=== PATIENT | male | born 1930 | race Caucasian/White ===

== ENCOUNTER → 2017-01-07 | Outpatient (CLI) | payer OTHER | LOC: BHLMT 16:00 | PROVIDERS: ATTEND Internal Medicine Interventional Cardiology | DX: I49.3 Ventricular premature depolarization (principal); I47.2 Ventricular tachycardia | CPT/HCPCS: 93225-PO; 93226-PO ==

== ENCOUNTER 2018-05-13 09:27 | Inpatient (IN) | payer OTHER ==
[2018-05-13] MEDS ORDERED: PROTOCOL POTASSIUM 1 DOSE MISC PRN (12:06)
[2018-05-13] MEDS ORDERED: PROTOCOL MAGNESIUM 1 DOSE IV PRN (12:06)
[2018-05-13] MEDS ORDERED: ONDANSETRON 4 MG/2 ML VIAL IVP PRN (12:06)
[2018-05-13] MEDS ORDERED: ONDANSETRON DISINTEGRATING 4 MG TAB PO PRN (12:06)
[2018-05-13] MEDS: FUROSEMIDE 100 MG in D5W 100 ML IV SCH ×2 (13:58→23:41)
--- NOTE | 2018-05-13 14:57 | PDCARPN ---
Cardiology Progress Note Chief Complaint: Shortness of Breath and leg swelling Assessment/Plan: Assessment: Darell is a 88 y/o male with history of Diastolic and Systolic CHF, COPD, DMT2, HTN, Morbid obesity and Myelodysplastic Syndrome. He is followed as an out- patient by Dr Juvenal Crooks. He has been on oral Lasix and not adequately diuresing. Acute on Chronic Systolic and Diastolic CHF: Increased SOB and leg and abdominal swelling that is not responding to oral diuretics. He has been sleeping in a recliner chair at home to get rest. Lower legs are 3+ edema with red with no skin breakdown. HYPERTENSION well managed on Lisinopril and Carvedilol. He does use oxygen which is helpful. He understands his plan for hospital care. Plan: IV Lasix drip for diuresis. Will monitor his electrolytes closely. Will have PT /OT work with him while here. 05/13/18 14:47 Subjective: I can't breath well. The Lasix at home has not helped. Reviewed/Discussed With: family, multidisciplinary team Time Spent with Patient: greater than 25 minutes Time Spent with Patient: Greater than 25 minutes spent on this patients care, greater than 50% of time spent counseling, educating, and coordinating care regarding the above mentioned plan. Objective: Vital Signs (8 Hrs) Temp Pulse Resp BP Pulse Ox 05/13/18 11:51 36.7 C 82 20 133/64 H 98 Intake/Output (24 Hrs) 05/12/18 05/13/18 05/14/18 05:59 05:59 05:59 Other: Weight 133 kg Result Diagrams: 05/13/18 13:50 - Physical Exam Constitutional: no apparent distress Cardiovascular: regular rate and rhythm, no rubs, no gallops Peripheral Pulses: 1+: dorsalis-pedis (R), dorsalis-pedis (L) Respiratory: reduced air movement, expiratory wheeze Gastrointestinal: no tenderness, tenderness, ascites Skin: warm, erythema, No no edema Neurologic: AAOx3 Psychiatric: cooperative, interactive ICD10 Worksheet Patient Problems: Problems Problem Status Onset Systolic and diastolic CHF, acute on chronic Acute
--- NOTE | 2018-05-13 16:46 | CPEKG ---
Test Reason : OPEN Blood Pressure : / mmHG Vent. Rate : 067 BPM Atrial Rate : 066 BPM P-R Int : 227 ms QRS Dur : 097 ms QT Int : 456 ms P-R-T Axes : 057 051 054 degrees QTc Int : 482 ms Sinus rhythm First degree AV block. Low voltage, precordial leads Borderline prolonged QT interval Confirmed by Alberto Kahn ([id number]) on 05/13/2018 4:46:12 PM Referred By: Juvenal Crooks Confirmed By:Alberto Kahn
[2018-05-13] MEDS: CARVEDILOL 3.125 MG TAB PO SCH (17:14)
[2018-05-13] MEDS ORDERED: POTASSIUM CL 10 MEQ TAB PO ONE (19:35)
[2018-05-13] MEDS: SENNOSIDES/DOCUSATE SODIUM TAB PO SCH (19:51)
[2018-05-13] MEDS: TEMAZEPAM 15 MG CAP PO PRN (22:43)
[2018-05-14 04:52] LABS: PLATELET COUNT 55 10^3/uL (150-400)
[2018-05-14] MEDS: ENOXAPARIN 40 MG/0.4 ML SYR SC SCH (07:43)
[2018-05-14] MEDS ORDERED: POTASSIUM CL 10 MEQ TAB PO ONE ×3 (07:45→20:04)
[2018-05-14] MEDS: FOLIC ACID 1 MG TAB PO SCH (09:27)
[2018-05-14] MEDS: SENNOSIDES/DOCUSATE SODIUM TAB PO SCH ×2 (09:27→20:22)
[2018-05-14] MEDS: CARVEDILOL 3.125 MG TAB PO SCH ×2 (09:27→18:21)
[2018-05-14] MEDS: CYANO/VITAMIN B12 1000 MCG TAB PO SCH (09:27)
[2018-05-14] MEDS: metFORMIN SR 500 MG TAB PO SCH (09:27)
[2018-05-14] MEDS: PYRIDOXINE HCL 100 MG TAB PO SCH (09:27)
[2018-05-14] MEDS: LISINOPRIL 5 MG TAB PO SCH (09:27)
[2018-05-14] MEDS: ASPIRIN 81 MG CHEWABLE TAB PO SCH (09:28)
--- NOTE | 2018-05-14 11:59 | PDMN ---
Medical Necessity Medical necessity: Pt meets IP criteria per [employer] & MCG M-190; est los >2 mn for eval/tx of acute on chronic CHF w/increased dyspnea, leg & abdominal swelling that is not responding to oral diuretics; admit for further monitoring, IV diuresis & therapies; comorbid advanced age, COPD; per progress note & order 05/13
--- NOTE | 2018-05-14 12:15 | PDCARPN ---
Cardiology Progress Note Assessment/Plan: Assessment: Darell is a 88 y/o male with history of Diastolic and Systolic CHF, COPD, DMT2, HTN, Morbid obesity and Myelodysplastic Syndrome. He is followed as an out- patient by Dr Juvenal Crooks. He has been on oral Lasix and not adequately diuresing. Acute on Chronic Systolic and Diastolic CHF: Increased SOB and leg and abdominal swelling that is not responding to oral diuretics. He has been sleeping in a recliner chair at home to get rest. Lower legs are 3+ edema with red with no skin breakdown. HYPERTENSION well managed on Lisinopril and Carvedilol. He does use oxygen which is helpful. He understands his plan for hospital care. Plan: IV Lasix drip for diuresis. Will monitor his electrolytes closely. Will have PT /OT work with him while here. 05/13/18 14:47 05/14/18 12:10 Tolerating the Lasix drip well. He has diuresed 5 Kg over the past 24 hours. BNP 113. Cr 1.1. He is breathing easier and his legs are less swollen. Will continue with Lasix drip, and monitoring closely his electrolytes and Kidney functions. Subjective: I am breathing easier today. Feeling better. Reviewed/Discussed With: family, multidisciplinary team Time Spent with Patient: greater than 25 minutes Time Spent with Patient: Greater than 25 minutes spent on this patients care, greater than 50% of time spent counseling, educating, and coordinating care regarding the above mentioned plan. Objective: Vital Signs (8 Hrs) Temp Pulse Pulse Pulse Resp BP BP 05/14/18 10:46 36.4 C 14 05/14/18 08:50 74 80 65 125/70 H 110/70 05/14/18 08:25 74 65 65 125/70 H 110/70 05/14/18 06:22 77 77 67 125/64 H 108/75 BP Pulse Ox 05/14/18 10:46 98 05/14/18 08:50 113/60 05/14/18 08:25 113/60 05/14/18 06:22 105/67 Intake/Output (24 Hrs) 05/13/18 05/14/18 05/15/18 05:59 05:59 05:59 Intake Total 208.8 347 Output Total 3300 1000 Balance -3091.2 -653 Intake: Oral (ml) 50 347 IV Infused (ml) 158.8 Furosemide 100 mg In D5w 158.8 100 ml @ 10 mls/hr IV CONT ELLIE Rx#:[id number] Output: Urine (ml) 3300 1000 Catheter 3200 Urinal 100 1000 Other: Weight 128.094 kg Intake Quantity Yes Sufficient Number of Voids Urinal 1 Result Diagrams: 05/14/18 03:24 05/14/18 03:24 - Physical Exam Constitutional: no apparent distress Cardiovascular: regular rate and rhythm, no rubs, no gallops, No systolic murmur Respiratory: no crackles, no wheezes, reduced air movement Skin: warm, other (LE Edema) Neurologic: AAOx3 Psychiatric: cooperative, interactive ICD10 Worksheet Patient Problems: Problems Problem Status Onset chronic disease mgmt/transitional care Acute Systolic and diastolic CHF, acute on chronic Acute
[2018-05-14] MEDS: FUROSEMIDE 100 MG in D5W 100 ML IV SCH ×2 (13:00→20:22)
--- NOTE | 2018-05-14 14:09 | ASMTCMCOM ---
CM Note CM Note Notes: 05/14/2018 Case Management Note Pt admitted for acute on chronic CHF. Met w/pt to discuss PT recommendation for SNF rehab. Pt firmly declined. Stepdaughter Kesha [phone] in room. Kesha indicated [facility]. Pt lives with daughter Toña [phone] and son in law Troy [phone]. Pt has custodial care insurance policy that is activated. Phone call to Toña to discuss d/c recommendations. Phone call from Troy to discuss d/c recommendations. Requested family consider increasing supports at home to 24 hour support. Troy to check on coverage from intermediate manager care policy. Fax[facility] referral to [facility]. Case Management d/c poc: increasing services from [facility]. Case Management to follow. Date Signed: 05/14/2018 02:08 PM Electronically Signed By:Smiley Stone RN
[2018-05-15] MEDS ORDERED: POTASSIUM CL 10 MEQ TAB PO ONE ×2 (08:59→19:38)
[2018-05-15] MEDS ORDERED: POTASSIUM CL 10 MEQ TAB ONE (09:01)
[2018-05-15] MEDS: CYANO/VITAMIN B12 1000 MCG TAB PO SCH (09:06)
[2018-05-15] MEDS: CARVEDILOL 3.125 MG TAB PO SCH ×2 (09:06→17:49)
[2018-05-15] MEDS: SENNOSIDES/DOCUSATE SODIUM TAB PO SCH ×2 (09:06→20:17)
[2018-05-15] MEDS: FOLIC ACID 1 MG TAB PO SCH (09:06)
[2018-05-15] MEDS: metFORMIN SR 500 MG TAB PO SCH (09:06)
[2018-05-15] MEDS: LISINOPRIL 5 MG TAB PO SCH (09:06)
[2018-05-15] MEDS: ASPIRIN 81 MG CHEWABLE TAB PO SCH (09:06)
[2018-05-15] MEDS: PYRIDOXINE HCL 100 MG TAB PO SCH (09:08)
[2018-05-15 10:11] LABS: PLATELET COUNT 58 10^3/uL (150-400)
[2018-05-15] MEDS: ENOXAPARIN 40 MG/0.4 ML SYR SC SCH (13:40)
--- NOTE | 2018-05-15 15:04 | ASMTCMCOM ---
CM Note CM Note Notes: 05/15/2018 Case Management Note Pt considering home care agencies. Onsite visit from [facility] liason. Son in law Troy requested [facility] referral after consulting with [facility] providers. Case Management d/c poc: home with Diandra RN PT OT with resumption of [facility] unskilled providers. Case Management to follow. Date Signed: 05/15/2018 03:04 PM Electronically Signed By:Smiley Stone RN
--- NOTE | 2018-05-15 23:56 | PDCARPN ---
Cardiology Progress Note Assessment/Plan: Note: Late entry- the patient was seen today at approximately 18:00 Patient was electively admitted for diuresis using an intravenous furosemide drip due to a lack of response to outpatient attempts at diuresis. Over the past 2 days the patient has had over 5 L of output over the amount of intake. His lower extremity edema has improved substantially. He has no symptoms suggestive of angina or arrhythmias. His creatinine increased slightly today from 1.1-1.3. At this point, his intravenous furosemide drip will be discontinued. His home dose of furosemide will be increased to 40 mg daily starting tomorrow. He will have repeat laboratory testing in the morning. If his electrolytes and renal function are stable, he can be discharged home. The office staff at [facility] is been instructed to contact him to arrange for a follow-up appointment in the near future. 05/15/18 23:51 Subjective: No complaints. Reviewed/Discussed With: family Objective: Vital Signs (8 Hrs) Temp Pulse Resp BP Pulse Ox 05/15/18 23:10 36.9 C 75 20 119/68 95 05/15/18 20:00 36.9 C 68 20 118/63 96 05/15/18 16:00 36.7 C 71 20 111/59 L 98 Intake/Output (24 Hrs) 05/14/18 05/15/18 05/16/18 05:59 05:59 05:59 Intake Total 208.8 1067 Output Total 3300 2650 750 Balance -3091.2 -1583 -750 Intake: Oral (ml) 50 947 IV Infused (ml) 158.8 120 Furosemide 100 mg In D5w 158.8 120 100 ml @ 10 mls/hr IV CONT ELLIE Rx#:[id number] Output: Urine (ml) 3300 2650 750 Catheter 3200 850 750 Urinal 100 1800 Other: Weight 128.094 kg 126.5 kg Intake Quantity Yes Sufficient Number of Voids Urinal 2 Number of Stools Toilet 1 1 Result Diagrams: 05/15/18 10:00 05/15/18 10:00 - Physical Exam Constitutional: no apparent distress, obese Eyes: anicteric sclera Ears, Nose, Mouth, Throat: moist mucous membranes Cardiovascular: regular rate and rhythm, no murmurs Respiratory: clear to auscultate bilat Gastrointestinal: normoactive bowel sounds, no tenderness, no masses Skin: other (LE edema markedly improved) Neurologic: AAOx3 Psychiatric: not anxious ICD10 Worksheet Patient Problems: Problems Problem Status Onset Systolic and diastolic CHF, acute on chronic Acute chronic disease mgmt/transitional care Acute
[2018-05-16] MEDS: ACETAMINOPHEN 325 MG TAB PO PRN (00:25)
[2018-05-16] MEDS: TEMAZEPAM 15 MG CAP PO PRN ×2 (00:26→19:55)
--- NOTE | 2018-05-16 09:41 | PDCARPN ---
Cardiology Progress Note Chief Complaint: CHF Assessment/Plan: Assessment/Plan: 1. Decompensated CHF: Diuresed >5L in 2 days with Lasix gtt, drip was stopped yesterday due to slight bump in Cr from 1.0 to 1.3. Cr 1.4 today, edema markedly improved, lungs clear to auscultation. Transition to PO lasix 40mg daily today as per Dr. Crooks. Re-check BMP tomorrow and likely discharge home if renal function and electrolytes are stable 05/16/18 12:00 Subjective: No issues overnight, Simon reports feeling much better since admission, no cardiovascular concerns. He is eager to go home today. Reviewed/Discussed With: multidisciplinary team Objective: Vital Signs (8 Hrs) Temp Pulse Pulse Pulse Pulse Resp BP 05/16/18 08:00 36.9 C 62 18 116/64 05/16/18 04:00 36.9 C 64 65 81 76 20 122/56 H BP BP BP Pulse Ox 05/16/18 08:00 98 05/16/18 04:00 116/70 115/84 H 122/56 H 93 Intake/Output (24 Hrs) 05/15/18 05/16/18 05/17/18 05:59 05:59 05:59 Intake Total 1067 550 Output Total 2650 1999 Balance -1583 -1450 Intake: Oral (ml) 947 550 IV Infused (ml) 120 Furosemide 100 mg In D5w 120 100 ml @ 10 mls/hr IV CONT ELLIE Rx#:[id number] Output: Urine (ml) 2650 2000 Catheter 850 2000 Urinal 1800 Other: Weight 126.5 kg 126.6 kg Intake Quantity Yes Sufficient Number of Voids Urinal 2 Number of Stools Toilet 1 1 Result Diagrams: 05/15/18 10:00 05/16/18 03:15 Telemetry: NSR - Physical Exam Constitutional: WDWN, healthy appearing, no apparent distress Ears, Nose, Mouth, Throat: moist mucous membranes, no oral ulcers, no thrush Cardiovascular: regular rate and rhythm, no rubs, no gallops Peripheral Pulses: 2+: dorsalis-pedis (R), dorsalis-pedis (L) Respiratory: clear to auscultate bilat, no crackles, no wheezes Gastrointestinal: normoactive bowel sounds, no tenderness, no masses Skin: no rashes, no abrasions, no ulcers, warm, other (trace BLE edema) Neurologic: AAOx3, CN II-XII grossly intact Psychiatric: cooperative, interactive, following commands, not anxious ICD10 Worksheet Patient Problems: Problems Problem Status Onset Systolic and diastolic CHF, acute on chronic Acute chronic disease mgmt/transitional care Acute
[2018-05-16] MEDS: metFORMIN SR 500 MG TAB PO SCH (10:00)
[2018-05-16] MEDS: ENOXAPARIN 40 MG/0.4 ML SYR SC SCH (10:00)
[2018-05-16] MEDS: SENNOSIDES/DOCUSATE SODIUM TAB PO SCH ×2 (10:00→19:55)
[2018-05-16] MEDS: LISINOPRIL 5 MG TAB PO SCH (10:00)
[2018-05-16] MEDS: ASPIRIN 81 MG CHEWABLE TAB PO SCH (10:00)
[2018-05-16] MEDS: PYRIDOXINE HCL 100 MG TAB PO SCH (10:00)
[2018-05-16] MEDS: CARVEDILOL 3.125 MG TAB PO SCH ×2 (10:00→17:18)
[2018-05-16] MEDS: FOLIC ACID 1 MG TAB PO SCH (10:00)
[2018-05-16] MEDS: FUROSEMIDE 40 MG TAB PO SCH (10:00)
[2018-05-16] MEDS: CYANO/VITAMIN B12 1000 MCG TAB PO SCH (10:00)
[2018-05-16] MEDS ORDERED: POTASSIUM CL 10 MEQ TAB PO ONE (10:45)
[2018-05-17] MEDS: ACETAMINOPHEN 325 MG TAB PO PRN (04:43)
[2018-05-17 07:58] VITALS: BP 114/64
[2018-05-17] MEDS ORDERED: POTASSIUM CL 10 MEQ TAB PO ONE (07:59)
[2018-05-17] MEDS: ENOXAPARIN 40 MG/0.4 ML SYR SC SCH ×2 (08:17→08:24)
[2018-05-17] MEDS: CYANO/VITAMIN B12 1000 MCG TAB PO SCH (08:17)
[2018-05-17] MEDS: CARVEDILOL 3.125 MG TAB PO SCH (08:17)
[2018-05-17] MEDS: ASPIRIN 81 MG CHEWABLE TAB PO SCH (08:17)
[2018-05-17] MEDS: PYRIDOXINE HCL 100 MG TAB PO SCH (08:17)
[2018-05-17] MEDS: FOLIC ACID 1 MG TAB PO SCH (08:17)
[2018-05-17] MEDS: FUROSEMIDE 40 MG TAB PO SCH (08:18)
[2018-05-17] MEDS: LISINOPRIL 5 MG TAB PO SCH (08:18)
[2018-05-17] MEDS: metFORMIN SR 500 MG TAB PO SCH (08:18)
[2018-05-17] MEDS: SENNOSIDES/DOCUSATE SODIUM TAB PO SCH (08:18)
--- NOTE | 2018-05-17 09:13 | PDIAF ---
- Diagnosis Diagnosis: CHF Code Status: Full Code - Medication Management Discharge Medications: electronically signed and located in the Home Medication List. - Orders Services needed: Home [facility] Care Face to Face: I certify that this patient was under my care and that I had the required [id number] encounter meeting the encounter requirements on the discharge day. My findings support the fact that the patient is homebound as defined in Home Care Face to Face Continued: CMS Chapter 7 Medicare Benefits Manual 30.1.1 , The condition of the patient is such that there exists a normal inability to leave home and consequently, leaving home would require a considerable and taxing effort. Isolation Type: None Diet Recommendation: sodium restricted, cardiac -low fat low salt Diet Texture: Regular Texture Diet Weigh Patient: daily Franco: No Additional Instructions: 1. Increase your Lasix to 40mg daily 2. Follow-up with labs and clinic visit as per Dr. Crooks ([facility] will contact you to schedule these visits) - Follow Up Care Current Providers and Referrals: Juvenal Crooks MD [Medical Doctor] -
--- NOTE | 2018-05-17 14:35 | ASDISCHSUM ---
Discharge Information Plan Status:Home with Home Health Medically Cleared to Leave:05/17/2018 Discharge Date:05/17/2018 11:49 AM D/C Disposition:Home Health Service ADT D/C Disposition:Home, Routine, Self-Care Projected Discharge Date:05/16/2018 11:00 AM Transportation at D/C:Family Discharge Delay Reason: Follow-Up Date:05/16/2018 11:00 AM Discharge Slot: Final Diagnosis: Placement Information Referral Type:*Home Health Care Services Referral ID:[id number] Provider Name:[facility] Address 1:[address] Address 2: City:[place] Selection Factors: State:[place] Patient Contact Information Contact Name:Isaac Relationship:Daughter Address:[address] City:[place] Alternate Phone: State/Zip Code:[place] [address] Email: Financial Information Financial Class:Medicare Primary Plan Desc:MEDICARE INPATIENT Primary Plan Number:[id number] [facility] Secondary Plan Number:[id number] Assessment Information LACE LACE Length of stay for Answers: 4-6 days current admission Acuity / Level of Answers: Yes Care: Did the patient have an inpatient admission? Comorbidities - select Answers: Chronic pulmonary disease all that apply Congestive heart failure Diabetes (uncontrolled or controlled) Peripheral vascular disease Other Notes: HTN # of Emergency department Answers: 0 visits in the last 6 months Score: 14 Date Signed: 05/17/2018 02:33 PM Electronically Signed By:Smiley Stone RN [facility] CM Progress Note CM Note CM Note Notes: 05/14/2018 Case Management Note Pt admitted for acute on chronic CHF. Met w/pt to discuss PT recommendation for SNF rehab. Pt firmly declined. Stepdaughter Kesha [phone] in room. Kesha indicated pt has [facility]. Pt lives with daughter Toña [phone] and son in law Troy [phone]. Pt has group home care insurance policy that is activated. Phone call to Toña to discuss d/c recommendations. Phone call from Troy to discuss d/c recommendations. Requested family consider increasing supports at home to 24 hour support. Troy to check on coverage from superintendent container terminal care policy. Faxed referral to [facility]. Case Management d/c poc: increasing services from [facility]. Case Management to follow. Date Signed: 05/14/2018 02:08 PM Electronically Signed By:Smiley Stone RN [facility] CM Progress Note CM Note CM Note Notes: 05/15/2018 Case Management Note Pt considering home care agencies. Onsite visit from [facility] liason. Son in law Troy requested [facility] referral after consulting with [facility] providers. Case Management d/c poc: home with Ting RICK PT OT with resumption of [facility] unskilled providers. Case Management to follow. Date Signed: 05/15/2018 03:04 PM Electronically Signed By:Smiley Stone RN Case Management Discharge Plan Note Case Management Discharge Discharge Order Complete? Answers: Yes Patient to Obtain Answers: via Family Medications Transportation Arranged Answers: Family/Friends Faxed Final Orders Answers: Yes Notes: [facility] Agency/Facility Transfer Answers: Yes Notes: [facility] Report Printed & Faxed to Receiving Agency Discharge Comments Notes: 05/17/2018 Case Management Note Final orders faxed to [facility]. Family to increase non skilled care through [facility] in the home. Family transported home. Date Signed: 05/17/2018 02:35 PM Electronically Signed By:Smiley Stone RN Intervention Information
--- NOTE | 2018-05-17 15:50 | GDS ---
[f rep st] DISCHARGE SUMMARY SUPERVISING CARDIOLOGISTS: Rico Crooks and Jose Puentes. ADMISSION DIAGNOSES: 1. Diastolic and systolic congestive heart failure. 2. Chronic obstructive pulmonary disease. 3. Diabetes mellitus type 2. 4. Hypertension. 5. Morbid obesity. 6. Myelodysplastic syndrome. DISCHARGE DIAGNOSES: 1. Diastolic and systolic congestive heart failure. 2. Chronic obstructive pulmonary disease. 3. Diabetes mellitus type 2. 4. Hypertension. 5. Morbid obesity. 6. Myelodysplastic syndrome. PROCEDURES PERFORMED DURING HOSPITALIZATION: Electrocardiogram demonstrates normal sinus rhythm. HOSPITAL COURSE: Patient presented 05/13/2018, for elective diuresis in the setting of fluid volume overload, which did not respond to outpatient attempts at diuresis. Patient was started on a Lasix drip and had 5 L output over the course of 2 days. His bilateral lower extremity edema improved substantially and he reports feeling much better overall. His creatinine increased slightly from 1.1 on admission to 1.4 24hrs following the discontinuation of his Lasix As of this morning, his creatinine which has returned to baseline at 1.2 on Lasix 40 mg p.o. daily. He is appropriate and stable for discharge home today. PHYSICAL EXAMINATION: GENERAL: Alert and oriented x4. VITAL SIGNS: 114/64, heart rate 60, respiratory rate 18, SpO2 98% on 2 L nasal cannula, temp 36.8 degrees Celsius. RESPIRATORY: Lungs are clear to auscultation without adventitious breath sounds. CARDIAC: Normal S1, S2. Rhythm is regular. ABDOMEN: Normoactive bowel sounds times all 4 quadrants. No masses or tenderness. Soft to palpation. SKIN: [place], warm, dry without cyanosis or clubbing. EXTREMITIES: Pulses 2+ bilaterally. Trace bilateral lower extremity edema. LABORATORY STUDIES: Drawn today. BMP demonstrates normal electrolytes with a creatinine of 1.2. DISCHARGE DISPOSITION: Patient will be discharged home in stable condition. He is not under any activity restrictions. He will have homecare PT, OT, and RN care DISCHARGE MEDICATIONS: Please see discharge medication reconciliation sheet for full details. Please note that patient will continue Lasix 40 mg daily. DISCHARGE INSTRUCTIONS: Patient will have home care, PT, OT, and nursing support. He will follow up with Dr. Crooks for routine monitoring within the next week or so. He will continue Lasix 40 mg daily and he will contact [facility] if he experiences any new or concerning symptoms prior to his upcoming followup visit. Time spent on discharge greater than 30 minutes. /[id number]/MODL MTDD
== END 2018-05-17 11:49 | disposition home health service (06) | DRG 293 ==
LOC: F2W 11:32
PROVIDERS: ADMIT Internal Medicine Interventional Cardiology; ATTEND Internal Medicine Interventional Cardiology
DX: I11.0 Hypertensive heart disease with heart failure (principal); I50.43 Acute on chronic combined systolic (congestive) and diastolic (congestive) heart failure; J44.9 Chronic obstructive pulmonary disease, unspecified; E11.9 Type 2 diabetes mellitus without complications; E66.01 Morbid (severe) obesity due to excess calories; D46.9 Myelodysplastic syndrome, unspecified
CPT/HCPCS: 97116-GP; 97162-GP; 97166-GO; 97530-GP; 97535-GO; J1650; J1940

== ENCOUNTER → 2018-05-22 | Outpatient (CLI) | payer OTHER | LOC: BHLMT 10:00 | PROVIDERS: ATTEND Internal Medicine Interventional Cardiology | DX: I50.32 Chronic diastolic (congestive) heart failure (principal); I10 Essential (primary) hypertension; I49.3 Ventricular premature depolarization | CPT/HCPCS: 93306-PO ==